=== PATIENT | female | born 1980 | race Caucasian/White ===

== ENCOUNTER 2020-11-06 10:24 | Emergency (ER) | payer SELFPAY ==
[~2020-11-06] VITALS: Ht 180.3 cm; Wt 72.0 kg
[2020-11-06 10:34] VITALS: BP 120/92
--- NOTE | 2020-11-06 13:14 | PHYS DOC ---
Past History Additional Past Medical Histor: Mass in Rt breast, EOE Past Surgical History: No Surgical History Additional Smoking Information: 1/2 PACK Alcohol Use: None General Adult EDM: Chief Complaint: FACE PROBLEM HPI: HPI: Patient is a 40 year old female who presents with 4 days of sinus congestion. Has had headache related to her sinus pain on both sides. Reports low-grade temperatures of 99 F at home. Has not been able to nose very well. Has used Sudafed and other over the counter medications without benefit. She is also had poison ana paula exposure and has had a rash on her arms and legs for several days. She is used several different [id number] creams for this symptoms not helped either. She is not vaccinated for Covid. Has not had any Covid exposures. Denies any chest pains or shortness of breath Review of Systems: Review of Systems: Constitutional: Denies fever or chills Eyes: Denies change in visual acuity HENT: + Sinus congestion and headache Respiratory: Denies cough or shortness of breath Cardiovascular: Denies chest pain or edema GI: Denies abdominal pain, nausea, vomiting, bloody stools or diarrhea : Denies dysuria Musculoskeletal: Denies back pain or joint pain Integument: + Rash attributed to poison ana paula Neurologic: Denies headache, focal weakness or sensory changes Endocrine: Denies polyuria or polydipsia Lymphatic: Denies swollen glands Psychiatric: Denies depression or anxiety Family History: Family History: No pertinent past medical history. Allergies: Allergies: Allergies Coded Allergies Type Severity Reaction Last Updated Verified Penicillins Allergy Unknown 11/06/20 Yes [email or web address] Allergy Unknown 11/06/20 Yes Physical Exam: PE: Constitutional: Well developed, well nourished, no acute distress, non-toxic appearance. [] HENT: Sounds congested. No nasal drainage. No evidence of abscess overlying the sinuses. Some sinus tenderness to palpation bilaterally. Oropharynx is clear. [] Eyes: PERRLA, EOMI, conjunctiva normal, no discharge. [] Neck: Normal range of motion, no tenderness, supple, no stridor. [] Cardiovascular:Heart rate regular rhythm, no murmur [] Lungs & Thorax: Bilateral breath sounds clear to auscultation [] Abdomen: Bowel sounds normal, soft, no tenderness, no masses, no pulsatile masses. [] Skin: Warm, dry, no erythema. Diffuse maculopapular rash with excoriations on all 4 extremities [] Back: No tenderness, no CVA tenderness. [] Extremities: No tenderness, no cyanosis, no clubbing, ROM intact, no edema. [] Neurologic: Alert and oriented X 3, normal motor function, normal sensory function, no focal deficits noted. [] Psychologic: Affect normal, judgement normal, mood normal. [] Current Patient Data: Vital Signs: Vital Signs Date Time Temp Pulse Resp B/P (MAP) Pulse Ox O2 Delivery O2 Flow Rate FiO2 11/06/20 10:34 97.7 122 16 120/92 99 Room Air EKG: EKG: [] Radiology/Procedures: Radiology/Procedures: [] Heart Score: C/O Chest Pain: N/A Risk Factors: Risk Factors: DM, Current or recent (<one month) smoker, HTN, HLP, family history of CAD, obesity. Risk Scores: Score 0 - 3: 2.5% MACE over next 6 weeks - Discharge Home Score 4 - 6: 20.3% MACE over next 6 weeks - Admit for Clinical Observation Score 7 - 10: 72.7% MACE over next 6 weeks - Early Invasive Strategies Course & Med Decision Making: Course & Med Decision Making Pertinent Labs and Imaging studies reviewed. (See chart for details) Patient is a 40-year-old female with 4 days of sinus congestion and low-grade fevers at home. She also has had a slightly longer course of diffuse rash after poison ana paula exposure. She is nontoxic on exam. She is tachycardic at triage, but this has improved by the time of my exam. Will treat with a course of prednisone and Augmentin. Prednisone should be helpful for both congestion as well as the poison ana paula rash. Will test for Covid here in the ED. Damonon Disclaimer: Tara Disclaimer: This electronic medical record was generated, in whole or in part, using a voice recognition dictation system. Departure Departure: Disposition: HOME / SELF CARE / HOMELESS Condition: STABLE Referrals: PCP,NO (PCP) Since you do not have a PCP, please call the number for the [facility] at [phone]. Additional Instructions: I am giving you 2 medications to treat your sinus infection and your poison ana paula rash. Prednisone 40 mg daily for 5 days Augmentin twice daily for 7 days. Since you do not have a PCP, please call the number for the [facility] at [phone]. Scripts Prednisone (PREDNISONE) 20 Mg Tablet 40 MG PO DAILY for dermatitis, sinusitis for 5 Days, #10 TAB Prov: SHANIKA HARRISON MD 11/06/20 Amoxicillin/Potassium Clav (AUGMENTIN 875-125 TABLET) 1 Each Tablet 1 TAB PO BID for sinus infection for 7 Days, #14 TAB 0 Refills Prov: SHANIKA HARRISON MD 11/06/20 SHANIKA HARRISON MD Nov 06, 2020 13:13
[2020-11-06] MEDS ORDERED: PRED20TA PO (13:23)
[2020-11-06] MEDS ORDERED: AMOX1TAB61 PO (13:23)
== END 2020-11-06 13:27 | disposition home or self-care (01) ==
LOC: ER 10:24
DX: R09.81 Nasal congestion (principal); R51.9 Headache, unspecified; L23.7 Allergic contact dermatitis due to plants, except food; F17.200 Nicotine dependence, unspecified, uncomplicated; Z20.822 Contact with and (suspected) exposure to COVID-19; Z88.0 Allergy status to penicillin; Z88.8 Allergy status to other drugs, medicaments and biological substances
CPT/HCPCS: 99283; C9803; U0003